=== PATIENT | female | born 1965 ===

== ENCOUNTER 2021-06-30 23:40 | Emergency (ER) | payer BC ==
--- NOTE | 2021-06-30 23:46 | ED Physician Documentation ---
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 Also with BL pain in neck, R > L. Patient states pain in R neck is relatively chronic but L sided pain is more new. denies weakness at present. no recent injury but patient is very physically active. Review of Systems Ten Systems: 10 systems reviewed and negative Constitutional: denies: Fever, Chills Musculoskeletal: reports: Neck pain, Extremity pain Neurologic: reports: Focal weakness, Numbness. denies: Headache, Head injury PD ED PE NORMAL - Vitals Vital signs reviewed: Yes - General General: Alert and oriented X 3, No acute distress, Well developed/nourished - HEENT HEENT: Atraumatic, PERRL, EOMI - Neck Neck: Supple, no meningeal sign, No bony TTP, Other (BL neck discomfort to palpation in trapezius muscle distribution. ) - Cardiac Cardiac: RRR - Respiratory Respiratory: No respiratory distress, Clear bilaterally - Abdomen Abdomen: Non tender, Non distended - Derm Derm: Normal color, Warm and dry - Extremities Extremities: Other (2+ BL radial pulses. normal sensation and strength.) - Neuro Neuro: Alert and oriented X 3, pediatric rn 2-12 intact, No motor deficit, No sensory deficit, Normal speech Results - Vitals Vitals: Vital Signs - 24 hr 06/30/21 23:43 Temperature 36.5 C Heart Rate 82 Respiratory 20 Rate Blood Pressure 178/102 H O2 Saturation 100 Oxygen O2 Source Room air PD MEDICAL DECISION MAKING - ED course ED course: 56yF p/w concern of transient weakness, tingling and pain in LUE yesterday that has now resolved. also with R sided neck pain radiating to RUE. normal physical exam. will obtain CT head/neck to evaluate. patient declined medication. plan for patient to f/u with outpatient neurology for further eval and possible MRI. Departure - Departure Clinical Impression: Multiple sclerosis, Weakness of left hand, Numbness and tingling in left arm Condition: Good Instructions: Multiple Sclerosis Comments: You were seen in the ED for evaluation of numbness, weakness and pain that could be related to your MS. Please follow up with a neurologist as an outpatient. You may benefit from further testing including MRI and developing a medication regimen with a specialist. Return to the ED for new or worsening symptoms or other concerns.
[2021-06-30 23:50] VITALS: BP 178/102
--- NOTE | 2021-07-01 00:17 | CT Report ---
PROCEDURE: HEAD WO INDICATIONS: tingling, numbness in LUE, pain in neck, hx MS TECHNIQUE: Noncontrast 4.5 mm thick angled axial sections acquired from the foramen magnum to the vertex. For r adiation dose reduction, the following was used: automated exposure control, adjustment of mA and/or kV according to patient size. COMPARISON: None. FINDINGS: Image quality: Excellent. CSF spaces: Basal cisterns are patent. No extra-axial fluid collections. Ventricles are normal in size and shape. Brain: No midline shift. No intracranial masses or hemorrhage. Kelley-white matter interface is norm al. Skull and face: Calvarium and visualized facial bones are intact, without suspicious lesions. Sinuses: Visualized sinuses and mastoids are clear. IMPRESSION: CT head without acute intracranial abnormalities. No acute calvarial fractures. No evide nce for mass or mass effect. Reviewed by: Wilian Banerjee MD on 07/01/2021 12:16 AM [facility] Approved by: Wilian Banerjee MD on 07/01/2021 12:16 AM [facility] Station ID: [id number]
--- NOTE | 2021-07-01 00:20 | CT Report ---
PROCEDURE: CERVICAL SPINE WO INDICATIONS: neck pain, tingling, numbness in hands TECHNIQUE: Noncontrast 3 mm thick sections acquired from the skull base to the T4 level. Sagittal and coronal r eformats were then constructed. For radiation dose reduction, the following was used: automated exp osure control, adjustment of mA and/or kV according to patient size. COMPARISON: None. FINDINGS: Image quality: Excellent. Bones: No acute fractures or dislocations. Straightening of cervical lordosis. Multilevel cervical s pondylosis most pronounced at C4-5 through C6-7. Visualized superior ribs are intact. Craniocervica l junction is intact. Soft tissues: Prevertebral soft tissues are normal in thickness. No paravertebral hematomas. No ap ical pneumothoraces. IMPRESSION: CT cervical spine without acute fracture or traumatic malalignment. Straightening of normal cervical lordosis which may be related to positioning and/or concurrent muscle spasms. Moderate multilevel cervical spondylosis most pronounced from C4-5 through C6-7. Reviewed by: Wilian Banerjee MD on 07/01/2021 12:18 AM PST Approved by: Wilian Banerjee MD on 07/01/2021 12:18 AM PST Station ID: [id number]
== END 2021-07-01 01:26 | disposition home or self-care (01) ==
LOC: ED 23:40
DX: G35 Multiple sclerosis (principal)
CPT/HCPCS: 99283; 99284

== ENCOUNTER 2022-04-27 13:11 | Emergency (ER) | payer BC ==
--- OUTSIDE RECORDS SUMMARY | 2022-04-27 13:19 | EXTERNAL MEDICAL SUMMARY RPT | Continuity of Care Document ---
:1965 Author Organization [facility] Address [address] [place] [address] Phone Care Team Providers Name Role Phone Unavailable Unavailable Unavailable Pantera Mahoney Robert Unavailable Unavailable Allergies and Intolerances date description facility type (no date) [facility]unknown[facility] [place] Encounters No information. Functional Status No information. Immunizations No information. Medications date description facility +0000 methylprednisolone [facility] [id number]+0000 baclofen [facility] [id number]+0000 methylprednisolone [facility] [id number]+0000 baclofen [facility] [id number]+0000 methylprednisolone [facility] [phone]+0000 baclofen [facility] [id number]+0000 baclofen [facility] [phone]+0000 methylprednisolone [facility] Problems No information. Procedures date description facility [id number] Visit Code Hold [facility] Results/Labs No information. Social History date description facility [id number] Never smoker [facility] Vital Signs date measurement value units [id number]+0000 BMI BMI 29.87 kg/m2 [id number]+0000 BP_diastolic BP_diastolic 92 mmHg [id number]+0000 BP_systolic BP_systolic 166 mmHg [id number]+0000 heart_rate heart_rate 78 /min [id number]+0000 height_metric height_metric 170.18 cm [id number]+0000 height_standard height_standard 67 in [id number]+0000 respiration_rate respiration_rate 16 /min +0000 temperature_metric temperature_metric 36.39 C +0000 temperature_standard temperature_standard 9 7.5 F +0000 weight_metric weight_metric 86.18 kg +0000 weight_standard weight_standard 190 lb
[2022-04-27] MEDS ORDERED: SODIUM CHLORIDE 0.9% 1,000 ML IV STA (13:36)
[2022-04-27] MEDS ORDERED: CYCLOBENZAPRINE 10 MG TABLET PO STA (13:36)
[2022-04-27 13:52] LABS: BASOPHILS % (AUTO) 0.2 %; HCT - HEMATOCRIT 40.9 % (37.0-47.0); HGB - HEMOGLOBIN 13.9 g/dL (12.0-16.0); LYMPHOCYTES # (AUTO) 1.5 10^3/uL (1.5-3.5); LYMPHOCYTES % (AUTO) 12.1 %; MEAN CORPUSCULAR HEMOGLOBIN 31.7 pg (27.0-31.0); MEAN CORPUSCULAR VOLUME 93.2 fL (81.0-99.0); MEAN PLATELET VOLUME 10.3 fL (7.9-10.8); MONOCYTES # (AUTO) 0.6 10^3/uL (0.0-1.0); MONOCYTES % (AUTO) 4.4 %; NEUTROPHILS # (AUTO) 10.5 10^3/uL (1.5-6.6); NEUTROPHILS % (AUTO) 82.7 %; PLT - PLATELET COUNT 289 10^3/uL (130-450); RED BLOOD COUNT 4.39 10^6/uL (4.20-5.40); RED CELL DISTRIBUTION WIDTH 12.1 % (12.0-15.0); WHITE BLOOD COUNT 12.7 x10^3/uL (4.8-10.8)
[2022-04-27 14:06] LABS: ALBUMIN 4.9 g/dL (3.2-5.5); ALBUMIN/GLOBULIN RATIO 1.3 (1.0-2.2); BILIRUBIN,TOTAL 0.7 mg/dL (0.2-1.0); CALCIUM 9.9 mg/dL (8.5-10.3); CREATININE 0.8 mg/dL (0.4-1.0); POTASSIUM 4.4 mmol/L (3.5-5.0); TOTAL PROTEIN 8.6 g/dL (6.7-8.2)
--- NOTE | 2022-04-27 14:16 | XRAY Report ---
PROCEDURE: Chest 1 View X-Ray INDICATIONS: palpitations TECHNIQUE: One view of the chest was acquired. COMPARISON: None. FINDINGS: Surgical changes and devices: None. Lungs and pleura: No pleural effusions or pneumothorax. Lungs are clear. Mediastinum: Mediastinal contours appear normal. Heart size is normal. Bones and chest wall: No suspicious bony lesions. Overlying soft tissues appear unremarkable. IMPRESSION: No evidence acute bony process. Reviewed by: Nigel Flores MD on 04/27/2022 2:14 PM PST Approved by: Nigel Flores MD on 04/27/2022 2:14 PM PST Station ID: [id number]
[2022-04-27] MEDS ORDERED: KETOROLAC 30 MG/ML VIAL IVP STA (14:32)
--- NOTE | 2022-04-27 14:43 | ED Physician Documentation ---
History of Present Illness - Stated complaint Stated Complaint: NECK PX - Chief complaint Chief Complaint: Back Pain - History obtained from History obtained from: Patient - Additonal information Additional information: Patient is a 56-year-old female with past medical history significant for multiple sclerosis presenting for evaluation of Right upper thoracic pain at that radiates into her right arm that has been present Since Sunday. She reports this pain and symptoms are similar to previous flares of her MS and usually she is able to manage her symptoms at home. She was not getting relief with ibuprofen and massage at home so went to the walk-in clinic yesterday and was started on steroids as well as given a muscle relaxer "baclofen". She did try these medications last night without any significant improvement. Today she started to feel her heart racing which concerned her and prompted her to come to the emergency department. She denies chest pain or difficulty breathing. The heart racing sensation has subsided. She denies dizziness, near syncope. She does report to lifting weights on Sunday but denies any known injury. She reports that laying on her left side makes the pain in the right worse and it feels better when she lays on the right side.She denies recent illness or fever or dysuria.She does not currently have a neurologist or primary care physician. Review of Systems Constitutional: denies: Fever Cardiac: reports: Palpitations. denies: Chest pain / pressure Respiratory: denies: Dyspnea GI: denies: Abdominal Pain : denies: Dysuria Musculoskeletal: reports: Extremity pain Neurologic: denies: Focal weakness, Headache PD PAST MEDICAL HISTORY - Present Medications Home Medications: Ambulatory Orders Medication Instructions Recorded Confirmed Oxycodone HCl/Acetaminophen 1 each PO Q6H PRN #12 tablet 04/27/22 [Percocet 5-325 mg Tablet] - Allergies Allergies/Adverse Reactions: Allergies Allergy/AdvReac Type Severity Reaction Status Date / Time ibuprofen Allergy Hives Verified 07/01/21 00:04 PD ED PE NORMAL - General General: Alert and oriented X 3, No acute distress, Well developed/nourished - HEENT HEENT: Atraumatic, Moist mucous membranes - Neck Neck: Supple, no meningeal sign, No bony TTP - Cardiac Cardiac: RRR, Other (No crepitus) - Respiratory Respiratory: No respiratory distress - Abdomen Abdomen: Soft, Non tender, Non distended - Back Back: No spinal TTP, Other (Right upper thoracic tenderness to palpation over scapula with no bony tenderness, no deformities, swelling or bruising) - Derm Derm: Warm and dry - Extremities Extremities: No deformity, No tenderness to palpate, Normal ROM s pain, No edema, Other (Radial pulses intact bilaterally; Normal sensation and strength to bilateral upper and lower extremities) - Neuro Neuro: No motor deficit, No sensory deficit Results - Vitals Vitals: Vital Signs - 24 hr 04/27/22 04/27/22 04/27/22 13:28 15:17 15:57 Temperature 36.7 C Heart Rate 106 H 73 75 Respiratory 23 19 16 Rate Blood Pressure 187/111 H 172/93 H 176/100 H O2 Saturation 100 100 98 Oxygen O2 Source Room air - EKG (time done) 1405 Rate: Rate (enter#) (77) Intervals: No: Prolonged QT Ischemia: No: ST elevation c/w ischemia - Labs Labs: Laboratory Tests 04/27/22 04/27/22 04/27/22 13:48 13:48 13:48 WBC 12.7 H RBC 4.39 Hgb 13.9 Hct 40.9 MCV 93.2 MCH 31.7 H MCHC 34.0 RDW 12.1 Plt Count 289 MPV 10.3 Neut # (Auto) 10.5 H Lymph # (Auto) 1.5 [place] # (Auto) 0.6 Eos # (Auto) 0.0 Baso # (Auto) 0.0 Absolute Nucleated RBC 0.00 Nucleated RBC % 0.0 Sodium 139 Potassium 4.4 Chloride 102 Carbon Dioxide 23 Anion Gap 14.0 H BUN 23 H Creatinine 0.8 Estimated GFR (MDRD) 74 L Glucose 142 H Calcium 9.9 Magnesium 2.0 Total Bilirubin 0.7 AST 56 H ALT 108 H Alkaline Phosphatase 71 Total Protein 8.6 H Albumin 4.9 Globulin 3.7 Albumin/Globulin Ratio 1.3 TSH 0.71 PD MEDICAL DECISION MAKING - ED course Complexity details: reviewed results, re-evaluated patient ED course: Patient presenting for evaluation of right upper back pain radiating to her right arm. Reports this is similar to previous MS episodes. On exam she has no focal deficits or weakness to the right arm.No cervical spine tenderness. No recent falls or injuries to suggest C-spine injury.Patient also presenting for evaluation of palpitations. EKG with normal sinus rhythm and labs are reassuring. Mild elevation in LFTs which I did review with the patient. Blood pressure has also been elevated but appears to be related to pain. Patient is feeling better with medications here. I did offer small amount of narcotic pain medication and she has been having trouble sleeping which she is agreeable to. She did drive herself here and so does not want to take any here.I did encourage her to have close follow-up with her primary care doctor and did give her information for when is she does not currently have 1. She is advised on concerning symptoms to return for. Departure - Departure Disposition: Home, Self Care Clinical Impression: Radicular pain in left arm, Palpitations Right-sided thoracic back pain Qualifiers: Chronicity: acute Qualified Code(s): M54.6 - Pain in thoracic spine Condition: Stable Instructions: ED Cervical Radiculopathy Prescriptions: Oxycodone HCl/Acetaminophen [Percocet 5-325 mg Tablet] 1 each PO Q6H PRN #12 tablet PRN Reason: pain Comments: The exact cause of your pain is unclear but could be related to a pinched nerve or your MS.I would recommend continuing with the steroids that you were previously started on.I have sent a prescription for a small amount of narcotic pain medication to the [facility] pharmacy. I would use this sparingly. I would also recommend having a primary care doctor as your blood pressure here has been elevated and it would be valuable to have a PCP Who knows you who may help order testing that is done as an outpatient Or even refer you to a neurologist. Your liver markers were also noted to be slightly elevated today. I have included Shameka Montero's information as she is listed for unassigned ER follow-up this week. If you have any new or worsening symptoms please consider return to the ER. I am prescribing a short course of narcotic pain medication for you. These are potentially dangerous and addictive medications that should be used carefully. These medications may constipate you. Take an kwlv-wjw-xeiabtj stool softener (docusate) twice daily with plenty of water while taking these medications. If you go 24 hours without a bowel movement, take mjvl-ash-jccdadl miralax, per package instructions. Do not drink or drive while taking these medications. If you received narcotic or sedating medications while in the emergency department, do not drive for 24 hours. Store this medication in a safe, secure place and out of reach of children. It is a violation of federal law to give or sell this medication to another person or to use in a manner other than prescribed. The ED will not refill narcotic prescriptions, including prescriptions lost or stolen. To dispose of unwanted medications: 1. [facility] [address] in [place] has a medication drop box. They accept prescription medications (in pill form) Sunday through Sunday 9:00 a.m. to 5:00 p.m. 2. The [facility] accepts prescription medications (in pill form only) for disposal year round. Call for more information. 3. Contact the [facility] for the next [facility] sponsored prescription drug collection event. , [phone], or [phone]; Note that many narcotic pain relievers also contain Tylenol/acetaminophen. Please ensure that your total dose of acetaminophen from all sources does not exceed 3 g (3000 mg) per day. Discharge Date/Time: 04/27/22 15:57
[2022-04-27 15:58] VITALS: BP 176/100
== END 2022-04-27 15:57 | disposition home or self-care (01) ==
LOC: ED 13:11
DX: M79.621 Pain in right upper arm (principal); M54.6 Pain in thoracic spine; G35 Multiple sclerosis; R00.2 Palpitations
CPT/HCPCS: 36415; 71045; 80053; 83735; 84443; 85025; 93005; 96361; 96374; 99284; A9270

== ENCOUNTER 2022-05-04 11:43 | Outpatient (CLI) | payer BC ==
--- NOTE | 2022-05-04 17:48 | XRAY Report ---
PROCEDURE: Cervical Spine 2 View INDICATIONS: CERVICAL PAIN TECHNIQUE: 4 view(s) of the cervical spine were acquired. COMPARISON: None. FINDINGS: Bones: No fractures or dislocations to the C7 level. Degenerative joint space loss and sclerosis at the atlantodental interval. The lateral masses of C1 appear intact on the odontoid view. Trace retro listhesis at C4-5. Otherwise loss of normal cervical lordosis. Moderate disc height loss C4-5, C5-6, and C6-7 with mild anterior and posterior endplate osteophytes. Moderate facet hypertrophy on the lef t primarily at C3-4 and C4-5. No suspicious bony lesions. Soft tissues: No prevertebral soft tissue swelling. IMPRESSION: 1. Multilevel spondylosis and facet arthropathy. 2. Degenerative change at the atlantodental interval. Reviewed by: Kaila Mehta MD on 05/04/2022 5:47 PM PST Approved by: Kaila Mehta MD on 05/04/2022 5:47 PM PST Station ID: [id number]
== END 2022-05-04 11:44 | disposition home or self-care (01) ==
LOC: DI 11:43
PROVIDERS: ATTEND Nurse Practitioner Family
DX: M47.812 Spondylosis without myelopathy or radiculopathy, cervical region (principal); M43.12 Spondylolisthesis, cervical region; M50.323 Other cervical disc degeneration at C6-C7 level

== ENCOUNTER 2022-06-28 12:32 | Emergency (ER) | payer BC ==
[2022-06-28 12:43] VITALS: BP 178/107
--- OUTSIDE RECORDS SUMMARY | 2022-06-28 12:45 | EXTERNAL MEDICAL SUMMARY RPT | Continuity of Care Document ---
:1965 Author Organization [place] Address [address] [place] [address] Phone Care Team Providers Name Role Phone Unavailable Unavailable Unavailable Pantera Mahoney, Francois Unavailable Unavailable Bert Underwood, Steph Unavailable Unavailable Nayeli Esparza Rn Unavailable Unavailable Luis, Provider Unavailable Unavailable Allergies and Intolerances date description facility type (no date) [facility]OF[facility]unknown) [facility] Encounters No information. Functional Status No information. Immunizations No information. Medications date description facility 2022-04-26 00:00 methylprednisolone [facility] 2022-04-26 00:00 methylprednisolone [facility] 2022-04-26 00:00 methylprednisolone [facility] 2022-04-26 00:00 methylprednisolone [facility] 2022-04-26 00:00 baclofen [facility] 2022-04-26 00:00 baclofen [facility] 2022-04-26 00:00 baclofen [facility] 2022-04-26 00:00 baclofen [facility] 2022-04-26 00:00 methylprednisolone [facility] 2022-04-26 00:00 methylprednisolone [facility] 2022-04-26 00:00 methylprednisolone [facility] 2022-04-26 00:00 methylprednisolone [facility] 2022-04-26 00:00 baclofen [facility] 2022-04-26 00:00 baclofen [facility] 2022-04-26 00:00 baclofen [facility] 2022-04-26 00:00 baclofen [facility] 2022-04-26 00:00 methylprednisolone [facility] 2022-04-26 00:00 methylprednisolone [facility] 2022-04-26 00:00 methylprednisolone [facility] 2022-04-26 00:00 methylprednisolone [facility] 2022-04-26 00:00 baclofen [facility] 2022-04-26 00:00 baclofen [facility] 2022-04-26 00:00 baclofen [facility] 2022-04-26 00:00 baclofen [facility] 2022-04-26 00:00 baclofen [facility] 2022-04-26 00:00 baclofen [facility] 2022-04-26 00:00 baclofen [facility] 2022-04-26 00:00 baclofen [facility] 2022-04-26 00:00 methylprednisolone [facility] 2022-04-26 00:00 methylprednisolone [facility] 2022-04-26 00:00 methylprednisolone [facility] 2022-04-26 00:00 methylprednisolone [facility] [place] Problems date description facility 2022-04-26 00:00 Multiple sclerosis [facility] 2022-04-26 00:00 Multiple sclerosis [facility] 2022-04-26 00:00 Multiple sclerosis [facility] 2022-04-26 00:00 Multiple sclerosis [facility] 2022-05-31 00:00 Thoracic back pain [facility] 2022-05-31 00:00 Pain in thoracic spine [facility] [place] Procedures date description facility 2022-04-26 00:00 Visit Code Hold [facility] [place] 2022-04-26 00:00 Visit Code Hold [facility] [place] 2022-04-26 00:00 Visit Code Hold [facility] [place] 2022-04-26 00:00 Visit Code Hold [facility] [place] 2022-05-31 00:00 Visit Code Hold [facility] [place] Results/Labs No information. Social History date description facility 2022-04-26 00:00 Never smoker [facility] [place] 2022-04-26 00:00 Never smoker [facility] [place] 2022-04-26 00:00 Never smoker [facility] [place] 2022-04-26 00:00 Never smoker [facility] [place] Vital Signs date measurement value units 2022-04-26 00:00 BMI 29.87 kg/m2 2022-04-26 00:00 BP_diastolic 92 mmHg 2022-04-26 00:00 BP_systolic 166 mmHg 2022-04-26 00:00 heart_rate 78 /min 2022-04-26 00:00 height_metric 170.18 cm 2022-04-26 00:00 height_standard 67 in 2022-04-26 00:00 respiration_rate 16 /min 2022-04-26 00:00 temperature_metric 36.39 C 2022-04-26 00:00 temperature_standard 97.5 F 2022-04-26 00:00 weight_metric 86.18 kg 2022-04-26 00:00 weight_standard 190 lb 2022-05-31 00:00 BMI 30.18 kg/m2 2022-05-31 00:00 BP_diastolic 87 mmHg 2022-05-31 00:00 BP_systolic 153 mmHg 2022-05-31 00:00 heart_rate 73 /min 2022-05-31 00:00 height_metric 170.18 cm 2022-05-31 00:00 height_standard 67 in 2022-05-31 00:00 respiration_rate 18 /min 2022-05-31 00:00 temperature_metric 36.44 C 2022-05-31 00:00 temperature_standard 97.6 F 2022-05-31 00:00 weight_metric 87.09 kg 2022-05-31 00:00 weight_standard 192 lb
--- NOTE | 2022-06-28 12:55 | ED Physician Documentation ---
PD HPI FOCAL NEURO - Stated complaint Stated Complaint: HAND PX - Chief complaint Chief Complaint: Neuro - History obtained from History obtained from: Patient - Additional information Additional information: 57-year-old with history of multiple sclerosis has had worsening neck pain with numbness in the medial right hand that has been progressive over the last couple of months. She went to see her physician who ordered an MRI, but since the indication was only "neck pain" and no mention of radiculopathy her insurance denied it. That said despite being an aggressive physical therapy she continues to worsen. Review of Systems Constitutional: denies: Fever, Chills Cardiac: denies: Chest pain / pressure, Palpitations Respiratory: denies: Dyspnea, Cough PD PAST MEDICAL HISTORY - Present Medications Home Medications: Ambulatory Orders Medication Instructions Recorded Confirmed Oxycodone HCl/Acetaminophen 1 each PO Q6H PRN #12 tablet 04/27/22 [Percocet 5-325 mg Tablet] Amitriptyline HCl 50 mg PO QPM #30 tablet 06/28/22 predniSONE [Deltasone] 20 mg PO [id number] #21 tab 06/28/22 - Allergies Allergies/Adverse Reactions: Allergies Allergy/AdvReac Type Severity Reaction Status Date / Time ibuprofen AdvReac Hives Verified 06/28/22 12:43 PD ED PE NORMAL - Vitals Vital signs reviewed: Yes - General General: Alert and oriented X 3, No acute distress - Neck Neck: No bony TTP - Neuro Neuro: Alert and oriented X 3, Other (Almost complete numbness in right C8 distribution with significant weakness in right teacher tutor strength, but interosseous strength and thumb extension seems intact.) Results - Vitals Vitals: Vital Signs - 24 hr 06/28/22 12:36 Temperature 36.4 C L Heart Rate 95 Respiratory 14 Rate Blood Pressure 178/107 H O2 Saturation 100 Oxygen O2 Source Room air Departure - Departure Disposition: 01 Home, Self Care Clinical Impression: Cervical radiculopathy at C6 Condition: Good Record reviewed to determine appropriate education?: Yes Instructions: ED Cervical Radiculopathy Prescriptions: Amitriptyline HCl 50 mg PO QPM #30 tablet predniSONE [Deltasone] 20 mg PO [id number] #21 tab Comments: Hema Barron M.D. [address] [place] [address], [address], [place] [address] [place] [address] [facility] in [place], [place]. Location: [address] [place] [address] INDICATIONS: Worsening pain and right radiculopathy CONTRAST: gadavist 8ml TECHNIQUE: Noncontrast sagittal T1 spin echo and T2 fast spin echo, sagittal STIR, sagittal PD fast spin echo, foraminal oblique sagittal T2 fast spin echo, axial gradient echo or T2 fast spin echo through the cervical spine. After the administration of contrast, sagittal and axial T1 spin echo with fat saturation through the cervical spine. COMPARISON: Xray cervical spine 05/04/2022, CT cervical spine 06/30/2021 FINDINGS: Image quality: Excellent. Alignment and curvature: There is trace anterolisthesis of C3 on C4, trace retrolisthesis of C5 on C6, C6 on C7. Marrow: Marrow demonstrates normal overall signal. Spinal cord: Visualized spinal cord is normal in size, without white matter lesions. No suspicious intramedullary enhancement. No cerebellar tonsillar herniation. Paraspinous soft tissues: No paravertebral masses or suspicious enhancement. C2-C3: No disc bulge or spinal stenosis. Minimal to mild left foraminal narrowing with uncovertebral hypertrophy. C3-C4: Mild asymmetric disc bulge with slight left posterior paracentral prominence. There is mild narrowing of the left lateral recess with mild to moderate spinal stenosis. Moderate left foraminal narrowing with uncovertebral hypertrophy. C4-C5: Mild disc bulge with moderate spinal stenosis. Mild to moderate left and minimal to mild right foraminal narrowing with uncovertebral hypertrophy. C5-C6: Mild disc bulge including a left posterior proximal foraminal protrusion. There is moderate compromise of the right lateral recess as well as moderate proximal right foraminal narrowing. Bpuz-[id number] left foraminal narrowing. Mild to moderate spinal stenosis. C6-C7: Mild disc bulge with superimposed posterior central protrusion. Moderate spinal stenosis with slight indentation of the anterior thecal sac as well as cord. Moderate bilateral foraminal narrowing, left greater than right with uncovertebral hypertrophy. C7-T1: Mild disc bulge with slight indentation of the anterior thecal sac. Mild right foraminal narrowing. IMPRESSION: Multiple distal views. Multiple spinal stenosis most notable at C4-5, C6-7 secondary to disc bulges. Multilevel foraminal narrowing overall mild to moderate secondary to uncovertebral arthropathy.
[2022-06-28] MEDS ORDERED: GADOBUTROL 10 MMOL/10 ML VIAL ONE (13:40)
--- NOTE | 2022-06-28 15:09 | MRI Report ---
PROCEDURE: CERVICAL SPINE W/WO INDICATIONS: Worsening pain and right radiculopathy CONTRAST: gadavist 8ml TECHNIQUE: Noncontrast sagittal T1 spin echo and T2 fast spin echo, sagittal STIR, sagittal PD fast spin echo, f oraminal oblique sagittal T2 fast spin echo, axial gradient echo or T2 fast spin echo through the cer vical spine. After the administration of contrast, sagittal and axial T1 spin echo with fat saturati on through the cervical spine. COMPARISON: Xray cervical spine 05/04/2022, CT cervical spine 06/30/2021 FINDINGS: Image quality: Excellent. Alignment and curvature: There is trace anterolisthesis of C3 on C4, trace retrolisthesis of C5 on C 6, C6 on C7. Marrow: Marrow demonstrates normal overall signal. Spinal cord: Visualized spinal cord is normal in size, without white matter lesions. No suspicious intramedullary enhancement. No cerebellar tonsillar herniation. Paraspinous soft tissues: No paravertebral masses or suspicious enhancement. C2-C3: No disc bulge or spinal stenosis. Minimal to mild left foraminal narrowing with uncovertebral hypertrophy. C3-C4: Mild asymmetric disc bulge with slight left posterior paracentral prominence. There is mild narrowing of the left lateral recess with mild to moderate spinal stenosis. Moderate left foraminal n arrowing with uncovertebral hypertrophy. C4-C5: Mild disc bulge with moderate spinal stenosis. Mild to moderate left and minimal to mild righ t foraminal narrowing with uncovertebral hypertrophy. C5-C6: Mild disc bulge including a left posterior proximal foraminal protrusion. There is moderate c ompromise of the right lateral recess as well as moderate proximal right foraminal narrowing. Mild-to -moderate left foraminal narrowing. Mild to moderate spinal stenosis. C6-C7: Mild disc bulge with superimposed posterior central protrusion. Moderate spinal stenosis with slight indentation of the anterior thecal sac as well as cord. Moderate bilateral foraminal narrowin g, left greater than right with uncovertebral hypertrophy. C7-T1: Mild disc bulge with slight indentation of the anterior thecal sac. Mild right foraminal narr owing. IMPRESSION: Multiple distal views. Multiple spinal stenosis most notable at C4-5, C6-7 secondary to disc bulges. Multilevel foraminal narrowing overall mild to moderate secondary to uncovertebral arthropathy. Reviewed by: Estela Mai MD on 06/28/2022 3:08 PM PST Approved by: Estela Mai MD on 06/28/2022 3:08 PM PST Station ID: [id number]
[2022-06-28] MEDS ORDERED: GADOBUTROL 10 MMOL/10 ML VIAL IVP ONE (16:42)
== END 2022-06-28 15:31 | disposition home or self-care (01) ==
LOC: ED 12:32
DX: M54.12 Radiculopathy, cervical region (principal)
CPT/HCPCS: 72156; 99284; A9585

== ENCOUNTER 2022-07-25 10:54 | Outpatient (CLI) | payer BC ==
[2022-07-25 11:11] LABS: EOSINOPHILS # (AUTO) 0.2 10^3/uL (0.0-0.7); EOSINOPHILS % (AUTO) 4.3 %; HCT - HEMATOCRIT 40.5 % (37.0-47.0); HGB - HEMOGLOBIN 13.5 g/dL (12.0-16.0); LYMPHOCYTES # (AUTO) 1.7 10^3/uL (1.5-3.5); LYMPHOCYTES % (AUTO) 40.8 %; MEAN CORPUSCULAR HGB CONC 33.3 g/dL (32.0-36.0); MEAN CORPUSCULAR VOLUME 92.9 fL (81.0-99.0); MEAN PLATELET VOLUME 10.2 fL (7.9-10.8); MONOCYTES # (AUTO) 0.3 10^3/uL (0.0-1.0); NEUTROPHILS # (AUTO) 1.9 10^3/uL (1.5-6.6); NEUTROPHILS % (AUTO) 45.7 %; PLT - PLATELET COUNT 249 10^3/uL (130-450); RED BLOOD COUNT 4.36 10^6/uL (4.20-5.40); RED CELL DISTRIBUTION WIDTH 11.8 % (12.0-15.0); WHITE BLOOD COUNT 4.1 x10^3/uL (4.8-10.8)
[2022-07-25 19:27] LABS: ALBUMIN 4.6 g/dL (3.2-5.5); ALBUMIN/GLOBULIN RATIO 1.7 (1.0-2.2); ALKALINE PHOSPHATASE 65 IU/L (42-121); ALT ALANINE AMINOTRANSFERASE 71 IU/L (10-60); AST ASPARTATE AMINOTRANSFERASE 38 IU/L (10-42); BILIRUBIN,TOTAL 0.8 mg/dL (0.2-1.0); BUN - BLOOD UREA NITROGEN 15 mg/dL (6-20); CALCIUM 9.5 mg/dL (8.5-10.3); CARBON DIOXIDE - CO2 22 mmol/L (21-32); CHLORIDE 98 mmol/L (101-111); CHOL/HDL RATIO 5.7 (<4.4); CHOLESTEROL 284 mg/dL; CREATININE 0.8 mg/dL (0.4-1.0); GFR - MDRD 73 (>89); GLUCOSE 107 mg/dL (70-100); HDL CHOLESTEROL 50 mg/dL; LDL CHOLESTEROL,CALCULATED 191 mg/dL; LDL/HDL RATIO 3.8 (<4.4); POTASSIUM 4.5 mmol/L (3.5-5.0); SODIUM 134 mmol/L (135-145); TOTAL PROTEIN 7.3 g/dL (6.7-8.2); TRIGLYCERIDES 213 mg/dL; VLDL CHOLESTEROL 43 mg/dL
[2022-07-26 09:10] LABS: HCV AB <0.1 s/co ratio (0.0-0.9)
[2022-07-28 14:46] LABS: ESTIMATED AVERAGE GLUCOSE 126 mg/dL (70-100)
== END 2022-07-25 10:55 | disposition home or self-care (01) ==
LOC: LAB 10:54
PROVIDERS: ATTEND Internal Medicine
DX: U07.1 COVID-19 (principal); R74.8 Abnormal levels of other serum enzymes; G35 Multiple sclerosis; Z13.6 Encounter for screening for cardiovascular disorders; Z79.899 Other long term (current) drug therapy; Z82.49 Family history of ischemic heart disease and other diseases of the circulatory system; Z83.3 Family history of diabetes mellitus; Z11.59 Encounter for screening for other viral diseases
CPT/HCPCS: 36415; 80053; 80061; 83036; 83721; 84443; 85025; 86803

== ENCOUNTER 2022-08-16 14:51 | Outpatient (CLI) | payer BC ==
--- NOTE | 2022-08-17 17:00 | Mammography Report ---
BILATERAL DIGITAL SCREENING MAMMOGRAM 3D/2D: 08/16/2022 CLINICAL: Routine screening. Baseline exam. No prior exams were available for comparison. Both breasts are heterogeneously dense, which may obscure small masses (category c / 51-75% glandular tissue). There is a possible irregular equal density focal asymmetry in the left breast at 5 o'clock middle de pth. No other significant masses, calcifications, or other findings are seen in either breast. IMPRESSION: INCOMPLETE: NEEDS ADDITIONAL IMAGING EVALUATION The possible irregular equal density focal asymmetry in the left breast is indeterminate. Additional views with possible ultrasound are recommended. Based on the Tyrer Cuzick model (a risk assessment model) the patients lifetime risk is 9.5% and her 10 year risk is 3.7%. According to the ACR, ACS, and NCCN guidelines, an annual breast MRI exam rhonda g with mammogram is recommended if the patients lifetime risk is 20% or greater. This exam was interpreted at Station ID: [id number]. NOTE: For mammograms, a report in lay terms will be sent to the patient. Approximately 15% of breast malignancies will not be visualized mammographically. In the management of a palpable breast mass, a negative mammogram must not discourage biopsy of a clinically suspicious lesion. Electronically Signed By: Wilian Banerjee M.D. aty/:08/17/2022 07:57:04 ACR BI-RADS Category 0: Incomplete 3340F PARENCHYMAL PATTERN: (D) - The breast(s) demonstrate(s) heterogeneously dense fibroglandular parenchy ma. BI-RADS CATEGORY: (0) - 0 Mammo and US [id number] Immediate follow-up LATERALITY: (L)
== END 2022-08-16 14:52 | disposition home or self-care (01) ==
LOC: DI 14:51
PROVIDERS: ATTEND Internal Medicine
DX: Z12.31 Encounter for screening mammogram for malignant neoplasm of breast (principal); R92.8 Other abnormal and inconclusive findings on diagnostic imaging of breast; U07.1 COVID-19; R03.0 Elevated blood-pressure reading, without diagnosis of hypertension; R74.8 Abnormal levels of other serum enzymes; Z82.49 Family history of ischemic heart disease and other diseases of the circulatory system; Z83.3 Family history of diabetes mellitus; R73.01 Impaired fasting glucose; G35 Multiple sclerosis; R20.0 Anesthesia of skin; M79.601 Pain in right arm; Z13.6 Encounter for screening for cardiovascular disorders; Z11.59 Encounter for screening for other viral diseases; Z79.899 Other long term (current) drug therapy

== ENCOUNTER 2022-09-05 12:57 | Outpatient (CLI) | payer BC ==
--- NOTE | 2022-09-06 09:57 | Mammography Report ---
UNILATERAL LEFT DIGITAL DIAGNOSTIC MAMMOGRAM 3D/2D: 09/05/2022 CLINICAL: Patient returns today to evaluate a focal asymmetry in the left breast. Comparison is made to exam dated: 08/16/2022 mammogram - [facility]. The left breast is heterogeneously dense, which may obscure small masses (category c / 51-75% glandul ar tissue). The previously described possible irregular low density focal asymmetry in the left breast at 5 o'sebas ck posterior depth is not definitively confirmed in additional views. This is less prominent and dec reased in size. No other significant masses or calcifications are seen in the breast. IMPRESSION: INCOMPLETE: NEEDS ADDITIONAL IMAGING EVALUATION The possible irregular low density focal asymmetry in the left breast at 5 o'clock posterior depth is indeterminate. An ultrasound is recommended for further evaluation and is scheduled to immediately follow this examination. Based on the Tyrer Cuzick model (a risk assessment model) the patients lifetime risk is 15.2% and he r 10 year risk is 6.0%. According to the ACR, ACS, and NCCN guidelines, an annual breast MRI exam armond ng with mammogram is recommended if the patients lifetime risk is 20% or greater. This exam was interpreted at Station ID: [id number]. NOTE: For mammograms, a report in lay terms will be sent to the patient. Approximately 15% of breast malignancies will not be visualized mammographically. In the management of a palpable breast mass, a negative mammogram must not discourage biopsy of a clinically suspicious lesion. Electronically Signed By: Wilian Banerjee M.D. aty/:09/05/2022 14:42:04 ACR BI-RADS Category 0: Incomplete 3340F PARENCHYMAL PATTERN: (D) - The breast(s) demonstrate(s) heterogeneously dense fibroglandular parskylay ma. BI-RADS CATEGORY: (0) - 0 Ultrasound [id number] Immediate follow-up LATERALITY: (L)
--- NOTE | 2022-09-06 09:57 | Ultrasound Report ---
LIMITED ULTRASOUND OF LEFT BREAST: 09/05/2022 CLINICAL: Patient returns today to evaluate a focal asymmetry in the left breast. Comparison is made to exams dated: 09/05/2022 mammogram and 08/16/2022 mammogram - [facility]. Color flow ultrasound of the left breast 3-5 o'clock region was performed. Kelley scale images of the real-time examination were reviewed. No significant abnormalities were seen sonographically in the left breast. IMPRESSION: PROBABLY BENIGN There is no abnormality seen in the left breast to correspond with the possible focal asymmetry noted in the posterior depth of the left breast in the lower outer quadrant between 3 and 5 o'clock. This may represent fibroglandular tissue. A follow-up left mammogram and left ultrasound in 6 months is recommended to demonstrate stability. Findings and recommendations were conveyed to the patient during today's evaluation. This exam was interpreted at Station ID: [id number]. Electronically Signed By: Wilian Banerjee M.D. aty/:09/05/2022 14:44:45 Ultrasound BI-RADS: 3 Probably benign BI-RADS CATEGORY: (3) - 3 Mammo and US [id number] 6 month follow-up LATERALITY: (L)
== END 2022-09-05 12:58 | disposition home or self-care (01) ==
LOC: DI 12:57
PROVIDERS: ATTEND Internal Medicine
DX: R92.8 Other abnormal and inconclusive findings on diagnostic imaging of breast (principal)

== ENCOUNTER 2023-01-10 16:39 | Outpatient (CLI) | payer BC ==
--- NOTE | 2023-01-11 14:30 | XRAY Report ---
PROCEDURE: Shoulder 2 View RT INDICATIONS: SHOULDER PAIN,RIGHT TECHNIQUE: 2 views of the shoulder were acquired. COMPARISON: None. FINDINGS: Bones: No fractures or dislocations. No suspicious bony lesions. Visualized ribs appear intact. Acromioclavicular and glenohumeral degenerative narrowing is present. Humeral osteophyte is present. No erosions Soft tissues: No suspicious soft tissue calcifications. IMPRESSION: Mild to moderate arthritic changes at the acromioclavicular and glenohumeral joint spaces. Reviewed by: Estela Mai MD on 01/11/2023 2:28 PM PDT Approved by: Estela Mai MD on 01/11/2023 2:28 PM PDT Station ID: [id number]
== END 2023-01-10 16:40 | disposition home or self-care (01) ==
LOC: DI 16:39
PROVIDERS: ATTEND Family Medicine
DX: M19.011 Primary osteoarthritis, right shoulder (principal)

== ENCOUNTER 2023-01-15 16:14 | Emergency (ER) | payer BC ==
--- OUTSIDE RECORDS SUMMARY | 2023-01-15 16:54 | EXTERNAL MEDICAL SUMMARY RPT | Continuity of Care Document ---
Author Name Unknown Address [address] [place] [address] Phone Organization [facility] Address [address] [place] [address] Phone Care Team Providers Care Supervisor Of Research Name Role Phone Unavailable Unavailable Unavailable Kanu Dutta Md Unavailable Unavailable Gisel Cat Sitter Enp, Radha Unavailable Unavail able Allergies and Intolerances date description facility reaction severity Medications date description facility 2023-01-10 00:00 amitriptyline [facility] 2023-01-11 00:00 amitriptyline [facility] 2023-01-12 00:00 amitriptyline [facility] 2023-01-10 00:00 diphenhydramine hcl [facility] 2023-01-11 00:00 diphenhydramine hcl [facility] 2023-01-12 00:00 diphenhydramine hcl [facility] 2023-01-10 00:00 amitriptyline [facility] 2023-01-11 00:00 amitriptyline [facility] 2023-01-12 00:00 amitriptyline [facility] 2023-01-10 00:00 ibuprofen [facility] 2023-01-11 00:00 ibuprofen [facility] 2023-01-12 00:00 ibuprofen [facility] 2023-01-10 00:00 diphenhydramine hcl [facility] 2023-01-11 00:00 diphenhydramine hcl [facility] 2023-01-12 00:00 diphenhydramine hcl [facility] 2023-01-10 00:00 ibuprofen [facility] 2023-01-11 00:00 ibuprofen [facility] 2023-01-12 00:00 ibuprofen [facility] 2023-01-10 00:00 diphenhydramine hcl [facility] 2023-01-11 00:00 diphenhydramine hcl [facility] 2023-01-12 00:00 diphenhydramine hcl [facility] 2023-01-10 00:00 pregabalin [facility] 2023-01-10 00:00 pregabalin [facility] 2023-01-10 00:00 ibuprofen [facility] 2023-01-11 00:00 ibuprofen [facility] 2023-01-12 00:00 ibuprofen [facility] 2023-01-10 00:00 diphenhydramine hcl [facility] 2023-01-11 00:00 diphenhydramine hcl [facility] 2023-01-12 00:00 diphenhydramine hcl [facility] 2023-01-10 00:00 amitriptyline [facility] 2023-01-11 00:00 amitriptyline [facility] 2023-01-12 00:00 amitriptyline [facility] 2023-01-10 00:00 ibuprofen [facility] 2023-01-11 00:00 ibuprofen [facility] 2023-01-12 00:00 ibuprofen [facility] 2023-01-10 00:00 pregabalin [facility] 2023-01-10 00:00 pregabalin [facility] 2023-01-10 00:00 pregabalin [facility] 2023-01-10 00:00 pregabalin [facility] 2023-01-10 00:00 amitriptyline [facility] 2023-01-11 00:00 amitriptyline [facility] 2023-01-12 00:00 amitriptyline [facility] 2023-01-10 00:00 pregabalin [facility] 2023-01-10 00:00 pregabalin [facility] Problems date description facility 2023-01-10 00:00 Pain of right shoulder joint [facility] 2023-01-10 00:00 Pain of right shoulder joint [facility] 2023-01-10 00:00 Mononeuritis of unspecified sit e [facility] 2023-01-10 00:00 Mononeuritis of unspecified sit e [facility] 2023-01-10 00:00 Neuropathy [facility] 2023-01-10 00:00 Neuropathy [facility] 2023-01-10 00:00 Pain in joint involv ing shoulder region [facility] 2023-01-10 00:00 Pain in joint involv ing shoulder region [facility] 2023-01-10 00:00 Multiple sclerosis [facility] [place] 2023-01-10 00:00 Multiple sclerosis [facility] [place] 2023-01-10 00:00 Polyneuropathy, unspecified [facility] 2023-01-10 00:00 Polyneuropathy, unspecified [facility] 2023-01-10 00:00 Pain in right shoulder [facility] 2023-01-10 00:00 Pain in right shoulder [facility] Procedures date description facility 2023-01-10 00:00 Visit Code Hold [facility] 2023-01-10 00:00 Visit Code Hold [facility] 2023-01-10 00:00 XR SHOULDER COMPLETE 2 VIEW [facility] Vital Signs date measurement value units 2023-01-10 00:00 BMI 29.49 kg/m2 2023-01-10 00:00 BP_diastolic 96 mmHg 2023-01-10 00:00 BP_systolic 170 mmHg 2023-01-10 00:00 heart_rate 70 /min 2023-01-10 00:00 height_metric 170.18 cm 2023-01-10 00:00 height_standard 67 in 2023-01-10 00:00 respiration_rate 16 /min 2023-01-10 00:00 temperature_metric 37 C 2023-01-10 00:00 temperature_standard 98.6 F 2023-01-10 00:00 weight_metric 85.09 kg 2023-01-10 00:00 weight_standard 187.6 lb
[2023-01-15] MEDS ORDERED: cefTRIAXone 1 GM VIAL IVP STA (18:02)
[2023-01-15 18:14] LABS: BASOPHILS % (AUTO) 0.4 %; EOSINOPHILS # (AUTO) 0.1 10^3/uL (0.0-0.7); EOSINOPHILS % (AUTO) 1.2 %; HCT - HEMATOCRIT 43.4 % (37.0-47.0); HGB - HEMOGLOBIN 14.4 g/dL (12.0-16.0); LYMPHOCYTES # (AUTO) 1.7 10^3/uL (1.5-3.5); LYMPHOCYTES % (AUTO) 17.7 %; MEAN CORPUSCULAR HEMOGLOBIN 31.2 pg (27.0-31.0); MEAN CORPUSCULAR HGB CONC 33.2 g/dL (32.0-36.0); MEAN CORPUSCULAR VOLUME 93.9 fL (81.0-99.0); MEAN PLATELET VOLUME 10.5 fL (7.9-10.8); MONOCYTES # (AUTO) 0.6 10^3/uL (0.0-1.0); MONOCYTES % (AUTO) 6.3 %; NEUTROPHILS # (AUTO) 7.3 10^3/uL (1.5-6.6); NEUTROPHILS % (AUTO) 74.1 %; PLT - PLATELET COUNT 271 10^3/uL (130-450); RED BLOOD COUNT 4.62 10^6/uL (4.20-5.40); RED CELL DISTRIBUTION WIDTH 12.2 % (12.0-15.0); WHITE BLOOD COUNT 9.8 x10^3/uL (4.8-10.8)
[2023-01-15 18:21] LABS: PT - PROTHROMBIN TIME 10.4 secs (9.9-12.6)
[2023-01-15 18:29] LABS: PARTIAL THROMBOPLASTIN TIME 28.8 secs (24.9-33.3)
[2023-01-15 18:56] LABS: ALBUMIN 5.4 g/dL (3.2-5.5); ALBUMIN/GLOBULIN RATIO 1.5 (1.0-2.2); BILIRUBIN,TOTAL 0.6 mg/dL (0.2-1.0); CALCIUM 10.7 mg/dL (8.5-10.3); CREATININE 0.7 mg/dL (0.6-1.3); TOTAL PROTEIN 9.1 g/dL (6.4-8.9)
--- NOTE | 2023-01-15 20:18 | CT Report ---
PROCEDURE: SOFT TISSUE NECK W INDICATIONS: L sided facial/neck swelling CONTRAST: 100mL Omni 300 TECHNIQUE: After the administration of intravenous contrast, 3.0 mm axial sections acquired from the sella to th e aortic arch. Additional oblique axial 3.0 mm sections acquired through the pharynx. 3 mm thick co ca reformats were generated. For radiation dose reduction, the following was used: automated exp osure control, adjustment of mA and/or kV according to patient size. COMPARISON: None. FINDINGS: Image quality: There is metallic streak artifact from patient's dental hardware. Lymph nodes: No enlarged lymph nodes seen throughout the neck. Vessels: Visualized vasculature appears patent. Neck spaces: The oropharynx, nasopharynx, and pharynx demonstrate no mucosal lesions. The vocal cor ds, false vocal cords, pyriform sinuses, epiglottis, vallecula, and tongue base all appear normal. There is fat stranding and fluid consistent with edema in the left research soil scientist space. No loculated flu id collection to suggest an abscess. Glands: The parotid and submandibular glands appear normal. There is a hypoattenuating nodule withi n the right thyroid lobe measuring up to 0.8 cm. Miscellaneous: Visualized brain and orbits appear normal. Lung apices appear clear. Superficial so ft tissues appear normal. Bones: No suspicious bony lesions. Visualized sinuses and mastoids appear unremarkable. IMPRESSION: 1. Nonspecific edema within the left research soil scientist space may represent infection. No loculated fluid col lection to suggest an abscess. Reviewed by: Malcolm Weber MD on 01/15/2023 8:16 PM PDT Approved by: Malcolm Weber MD on 01/15/2023 8:16 PM PDT Station ID: [id number]
[2023-01-15 20:22] VITALS: BP 183/11
[2023-01-15] MEDS ORDERED: oxyCODONE/ACET 5/325 Prepack 4 PO STA (20:33)
--- NOTE | 2023-01-15 20:40 | ED Physician Documentation ---
History of Present Illness - Stated complaint Stated Complaint: FEVER/SWOLLEN JAW - Chief complaint Chief Complaint: Fever - History obtained from History obtained from: Patient - History of Present Illness Pain level max: 6 Pain level now: 6 - Additonal information Additional information: 57 year old female with dental pain for several days. She complains of swelling to the left side of the face. Reported fever at home. T max 99.8. No difficulty with speech or swallowing. No stridor. No wheezing. No vomiting. She has a history of multiple sclerosis. Review of Systems Ears: reports: Ear pain (Mild left ear pain) Throat: denies: Sore throat GI: denies: Nausea, Vomiting, Diarrhea Skin: denies: Rash Musculoskeletal: denies: Neck pain, Back pain Neurologic: denies: Headache PD PAST MEDICAL HISTORY - Past Medical History Past Medical History: Yes Neuro: Multiple sclerosis - Present Medications Home Medications: Ambulatory Orders Medication Instructions Recorded Confirmed Oxycodone HCl/Acetaminophen 1 each PO Q6H PRN #12 tablet 04/27/22 [Percocet 5-325 mg Tablet] Amitriptyline HCl 50 mg PO QPM #30 tablet 06/28/22 predniSONE [Deltasone] 20 mg PO [id number] #21 tab 06/28/22 Oxycodone HCl/Acetaminophen 1 - 2 each PO Q6H PRN #14 tablet 01/15/23 [Percocet 5-325 mg Tablet] MDD 6 tabs clindamycin HCL [Cleocin HCl] 300 mg PO Q6H #40 cap 01/15/23 - Allergies Allergies/Adverse Reactions: Allergies Allergy/AdvReac Type Severity Reaction Status Date / Time ibuprofen AdvReac Hives Verified 01/15/23 16:37 - Living Situation Living Situation: reports: With family Living Arrangement: reports: At home - Social History Does the pt smoke?: No Smoking Status: Never smoker PD ED PE NORMAL - Vitals Vital signs reviewed: Yes - General General: Alert and oriented X 3, No acute distress - HEENT HEENT: Ears normal, Moist mucous membranes, Other (L mandible, no visible abscess. no drainage. TTP over the lower molar. no ludwigs angina. normal phonation, no trismus.) - Neck Neck: Supple, no meningeal sign - Cardiac Cardiac: RRR - Respiratory Respiratory: No respiratory distress, Clear bilaterally - Derm Derm: Warm and dry - Neuro Neuro: Alert and oriented X 3 - Psych Psych: Normal mood, Normal affect Results - Vitals Vitals: Vital Signs - 24 hr 01/15/23 01/15/23 16:30 20:16 Temperature 37.1 C 37.7 C Heart Rate 98 85 Respiratory 20 16 Rate Blood Pressure 169/80 H 183/11 H O2 Saturation 97 98 Oxygen O2 Source Room air - Labs Labs: Laboratory Tests 01/15/23 01/15/23 01/15/23 18:08 18:08 18:08 WBC 9.8 RBC 4.62 Hgb 14.4 Hct 43.4 MCV 93.9 MCH 31.2 H MCHC 33.2 RDW 12.2 Plt Count 271 MPV 10.5 Neut # (Auto) 7.3 H Lymph # (Auto) 1.7 Woods # (Auto) 0.6 Eos # (Auto) 0.1 Baso # (Auto) 0.0 Absolute Nucleated RBC 0.00 Nucleated RBC % 0.0 PT 10.4 INR 1.0 APTT 28.8 Sodium 137 Potassium 4.0 Chloride 102 Carbon Dioxide 28 Anion Gap 7.0 BUN 11 Creatinine 0.7 Estimated GFR (MDRD) 86 L Glucose 109 H Lactic Acid Calcium 10.7 H Total Bilirubin 0.6 AST 24 ALT 41 Alkaline Phosphatase 91 Total Protein 9.1 H Albumin 5.4 Globulin 3.7 Albumin/Globulin Ratio 1.5 Lipase 17 01/15/23 18:08 WBC RBC Hgb Hct MCV MCH MCHC RDW Plt Count MPV Neut # (Auto) Lymph # (Auto) Woods # (Auto) Eos # (Auto) Baso # (Auto) Absolute Nucleated RBC Nucleated RBC % PT INR APTT Sodium Potassium Chloride Carbon Dioxide Anion Gap BUN Creatinine Estimated GFR (MDRD) Glucose Lactic Acid 1.7 Calcium Total Bilirubin AST ALT Alkaline Phosphatase Total Protein Albumin Globulin Albumin/Globulin Ratio Lipase - Rads (name of study) CT soft tissue Relevant Findings:: Final report received, See rad report PD Medical Decision Making - ED course Complexity details: reviewed results, re-evaluated patient, considered differential, d/w patient ED course: 57-year-old female with dental caries and mandibular swelling. CT does not show any evidence of abscess. Given IV Rocephin. Will place on pain medication for home and start on oral clindamycin. Recommend close follow-up with dentistry. Patient is well-appearing, nontoxic. Afebrile. No evidence of sepsis. Patient counseled regarding signs and symptoms for which I believe and urgent re- evaluation would be necessary. Patient with good understanding of and agreement to plan and is comfortable going home at this time This document was made in part using voice recognition software. While efforts are made to proofread this document, sound alike and grammatical errors may occur. Departure - Departure Disposition: 01 Home, Self Care Clinical Impression: Dental caries Condition: Good Instructions: ED Cavity Dental Follow-Up: Liane Fonseca MD [Primary Care Provider] - Prescriptions: clindamycin HCL [Cleocin HCl] 300 mg PO Q6H #40 cap Oxycodone HCl/Acetaminophen [Percocet 5-325 mg Tablet] 1 - 2 each PO Q6H PRN #14 tablet MDD 6 tabs PRN Reason: pain Comments: Your prescription was sent to the [facility] pharmacy. Please take all antibiotics until gone. Please follow-up with a dentist as soon as possible. Please return if you worsen. I am prescribing a short course of narcotic pain medication for you. These are potentially dangerous and addictive medications that should be used carefully. These medications may constipate you. Take an fmhh-pdi-[id number] stool softener (docusate) twice daily with plenty of water while taking these medications. If you go 24 hours without a bowel movement, take [id number] miralax, per package instructions. Do not drink or drive while taking these medications. If you received narcotic or sedating medications while in the emergency department, do not drive for 24 hours. Store this medication in a safe, secure place and out of reach of children. It is a violation of federal law to give or sell this medication to another person or to use in a manner other than prescribed. The ED will not refill narcotic prescriptions, including prescriptions lost or stolen. To dispose of unwanted medications: 1. [facility] at [address] in [place] has a medication drop box. They accept prescription medications (in pill form) Sunday through Sunday 9:00 a.m. to 5:00 p.m. 2. [facility] accepts prescription medications (in pill form only) for disposal year round. Call for more information. 3. Contact the [facility] for the next [facility] sponsored prescription drug collection event. , [phone], or [phone]; Forms: PCP List Discharge Date/Time: 01/15/23 21:26
[2023-01-16] MEDS ORDERED: iohexoL-300 100 ML VIAL IVP ONE (02:05)
== END 2023-01-15 21:26 | disposition home or self-care (01) ==
LOC: ED 16:14
DX: K02.9 Dental caries, unspecified (principal)
CPT/HCPCS: 36415; 70491; 80053; 83605; 83690; 85025; 85610; 85730; 87040; 96374; 99283; 99284; Q9967

== ENCOUNTER 2023-02-16 15:58 | Outpatient (CLI) | payer BC ==
--- NOTE | 2023-02-16 16:37 | Ultrasound Report ---
PROCEDURE: Head or Neck Soft Tissue INDICATIONS: THYROID NODULE TECHNIQUE: Real-time scanning was performed of the thyroid gland, with image documentation. COMPARISON: None FINDINGS: Right: Thyroid lobe measures Size cm, and is homogeneous in echotexture. Left: Thyroid lobe measures Size cm, and is homogenous in echotexture. Isthmus: Size mm thick. Nodule number: One Location: Right inferior Size: 1.2 x 0.9 x 0.8 cm. Composition: Solid (2 points). Echogenicity: Isoechoic (1 point). Shape: wider than tall. Margins: Smooth (0 points). Echogenic foci: None (0 points). Total points: 3 ACR TI-RADS category: Mildly suspicious (3 points). IMPRESSION: Right thyroid nodule measuring 1.2 cm, recommend follow-up as described below. ACR TI-RADS definitions and recommendations: TI-RADS 1 (benign): 0 points. FNA not needed. TI-RADS 2 (not suspicious): 2 points. FNA not needed. TI-RADS 3 (mildly suspicious): 3 points. "FNA if 2.5 cm or larger, follow up if 1.5 cm or larger (at 1, 3, and 5 years). TI-RADS 4 (moderately suspicious): 4-6 points. "FNA if 1.5 cm or larger, follow up if 1 cm or larger (at 1, 2, 3, and 5 years). TI-RADS 5 (highly suspicious): 7 points or more. "FNA if 1 cm or larger, follow up if 0.5 cm or larger (every year for 5 years). Reviewed by: Kwasi Morales MD on 02/16/2023 4:35 PM PDT Approved by: Kwasi Morales MD on 02/16/2023 4:35 PM PDT Station ID: [id number]
== END 2023-02-16 15:59 | disposition home or self-care (01) ==
LOC: DI 15:58
PROVIDERS: ATTEND Internal Medicine
DX: E04.1 Nontoxic single thyroid nodule (principal)

== ENCOUNTER 2023-02-24 13:55 | Outpatient (CLI) | payer BC ==
--- NOTE | 2023-02-26 10:20 | MRI Report ---
PROCEDURE: SHOULDER WO - RT INDICATIONS: SHOULDER PAIN TECHNIQUE: Noncontrast oblique coronal T2 fast spin echo with fat saturation, oblique sagittal T1 spin echo and T2 fast spin echo with fat saturation, axial T1 spin echo and T2 fast spin echo with fat saturation t hrough the shoulder. COMPARISON: None. FINDINGS: Image quality: Excellent. Rotator cuff: Mild T2 signal elevation diffusely throughout the supraspinatus and infraspinatus tendo ns at the humeral insertion sites extending the muscular tendinous junctions, indicating tendinopathy . Superimposed low-grade intrasubstance tearing of the anterior, mid, posterior supraspinatus tendon at the humeral insertion site. Low-grade articular surface tearing of the mid and anterior infraspina tus tendon at the humeral insertion site extending the muscular tendinous junction. Low-grade intrasu bstance and articular surface tearing of the mid/superior aspect of the subscapularis tendon at the h umeral insertion site extending the muscular tendinous shunt and. No rotator cuff atrophy. Bones and bursae: No bone marrow contusions or fractures. Mild glenohumeral and moderate acromioclav icular joint degeneration. The acromion demonstrates conventional anatomy, without an os acromiale. No pathologic subacromial/subdeltoid bursal fluid is present. Capsule and soft tissues: Linear high T2 signal intensity traverses the posterior superior labrum. Th e long head of the biceps tendon demonstrates normal location and morphology. The rotator interval a ppears normal, without fibrosis. The coracohumeral ligament is normal in thickness. IMPRESSION: 1. Supraspinatus and infraspinatus tendinopathy. 2. Low-grade tears of the subscapularis, supraspinatus, and infraspinatus tendons. 3. Acromial clavicular and glenohumeral joint osteoarthritis. 4. Findings suggestive of posterior superior labral tearing. Reviewed by: Blanca William MD on 02/26/2023 10:18 AM PDT Approved by: Blanca William MD on 02/26/2023 10:18 AM PDT Station ID: [id number]
== END 2023-02-24 13:56 | disposition home or self-care (01) ==
LOC: DI 13:55
PROVIDERS: ATTEND Internal Medicine
DX: M75.81 Other shoulder lesions, right shoulder (principal); M75.111 Incomplete rotator cuff tear or rupture of right shoulder, not specified as traumatic; M19.011 Primary osteoarthritis, right shoulder

== ENCOUNTER 2023-04-11 08:19 | Outpatient (CLI) | payer BC ==
--- NOTE | 2023-04-12 10:10 | Mammography Report ---
UNILATERAL LEFT DIGITAL DIAGNOSTIC MAMMOGRAM 3D/2D: 04/11/2023 CLINICAL: Patient returns for a 6 month follow up of the left breast. Comparison is made to exams dated: 09/05/2022 mammogram and 08/16/2022 mammogram - [facility]. The left breast is heterogeneously dense, which may obscure small masses (category c / 51-75% glandul ar tissue). Redemonstration of previously described possible irregular equal density focal asymmetry in the left breast at 5 o'clock middle depth. This is again not definitively seen in additional views. This is less prominent and decreased in size and was not seen on the prior ultrasound. No other significant masses or calcifications are seen in the breast. IMPRESSION: PROBABLY BENIGN The possible irregular low density focal asymmetry in the left breast at 5 o'clock middle depth is pr obably benign. A follow-up bilateral mammogram with possible left ultrasound in 6 months is recommended to demonstra te continued stability. Findings and recommendations were conveyed to the patient during today's evaluation. Based on the Tyrer Cuzick model (a risk assessment model) the patients lifetime risk is 15.2% and he r 10 year risk is 6.0%. According to the ACR, ACS, and NCCN guidelines, an annual breast MRI exam armond ng with mammogram is recommended if the patients lifetime risk is 20% or greater. This exam was interpreted at Station ID: [id number]. NOTE: For mammograms, a report in lay terms will be sent to the patient. Approximately 15% of breast malignancies will not be visualized mammographically. In the management of a palpable breast mass, a negative mammogram must not discourage biopsy of a clinically suspicious lesion. Electronically Signed By: Wilian Banerjee M.D. aty/:04/11/2023 12:50:50 ACR BI-RADS Category 3: Probably benign [id number] PARENCHYMAL PATTERN: (D) - The breast(s) demonstrate(s) heterogeneously dense fibroglandular parskylay aisha. BI-RADS CATEGORY: (3) - 3 Mammo and [place] [id number] 6 month follow-up LATERALITY: (B)
== END 2023-04-11 08:20 | disposition home or self-care (01) ==
LOC: DI 08:19
PROVIDERS: ATTEND Internal Medicine
DX: R92.8 Other abnormal and inconclusive findings on diagnostic imaging of breast (principal); R92.332 Mammographic heterogeneous density, left breast